=== PATIENT | female | born 1945 | race Caucasian/White ===

== ENCOUNTER → 2019-04-13 10:23 | Outpatient (CLI) | payer MEDICARE, OTHER | END | disposition home or self-care (01) | LOC: D.CT 10:23 | PROVIDERS: ATTEND Family Medicine | DX: R91.1 Solitary pulmonary nodule (principal); R42 Dizziness and giddiness ==

== ENCOUNTER 2019-04-30 08:00 | Outpatient (CLI) | payer MEDICARE, OTHER | END 2019-04-30 23:59 | disposition home or self-care (01) | LOC: D.MAMMO 08:00 | PROVIDERS: ATTEND Family Medicine | DX: Z12.31 Encounter for screening mammogram for malignant neoplasm of breast (principal) ==